=== PATIENT | male | born 1960 | race Caucasian/White ===

== ENCOUNTER 2023-12-11 13:06 | Inpatient (IN) | payer OTHER ==
[~2023-12-11] VITALS: Ht 170.2 cm; Wt 74.8 kg
[2023-12-11] MEDS ORDERED: BACI/NEOM/POLY B OINT PKT 1 UDPKT PACKET TP ONE (13:30)
[2023-12-11] MEDS ORDERED: LIDOCAINE 1% INJ 50 ML MDV IJ ONE (13:30)
[2023-12-11] MEDS ORDERED: TDAP [DIPH/PERTUSSIS/TET] 0.5 ML VIAL IM ONE ×2 (13:30→13:32)
[2023-12-11] MEDS ORDERED: IV NS 0.9% 1,000 ML BAG IV ONE (13:30)
[2023-12-11] MEDS ORDERED: LIDOCAINE HCL/PF 1% 30 ML SDV ONE (13:31)
[2023-12-11 13:36] LABS: BASOPHILS # (AUTO) 0.1 K/uL (0.0-0.2); BASOPHILS % (AUTO) 0.7 % (0.0-2.0); EOSINOPHILS # (AUTO) 0.4 K/uL (0.0-0.7); EOSINOPHILS % (AUTO) 3.6 % (0.0-6.0); HEMATOCRIT 38 % (39-51); HEMOGLOBIN 12.6 g/dL (13.5-17.5); LYMPHOCYTES # (AUTO) 5.1 K/uL (0.8-4.8); LYMPHOCYTES % (AUTO) 46.1 % (20.0-44.0); MEAN CORPUSCULAR HEMOGLOBIN 24 PG (26.0-33.0); MEAN CORPUSCULAR HGB CONC 33 g/dl (31.0-36.0); MEAN CORPUSCULAR VOLUME 72 fL (80-96); MONOCYTES # (AUTO) 1.3 K/uL (0.1-1.30); MONOCYTES % (AUTO) 11.4 % (2.0-12.0); NEUTROPHILS # (AUTO) 4.2 K/uL (1.8-8.9); NEUTROPHILS % (AUTO) 38.2 % (43.0-81.0); PLATELET COUNT (AUTO) 378 K/uL (150-450); RED BLOOD CELL COUNT(AUTO) 5.31 MIL/uL (4.5-6.0); RED CELL DISTRIBUTION WIDTH 15.4 % (11.5-15.0)
[2023-12-11] MEDS ORDERED: HYDR-3895 PO (13:44)
[2023-12-11] MEDS ORDERED: METO-295 PO (13:44)
[2023-12-11] MEDS ORDERED: OMEP20CA15 PO (13:44)
[2023-12-11] MEDS ORDERED: PERP4TAB11 PO (13:44)
[2023-12-11] MEDS ORDERED: ALBU8.5H8 IH (13:45)
[2023-12-11] MEDS ORDERED: GABA-532 PO (13:45)
[2023-12-11] MEDS ORDERED: DOCU-141 PO (13:45)
[2023-12-11] MEDS ORDERED: PERP8TAB6 PO (13:45)
[2023-12-11] MEDS ORDERED: BENZ1TAB7 PO (13:45)
[2023-12-11] MEDS ORDERED: DICL100G34 TP (13:45)
[2023-12-11] MEDS ORDERED: BUSP15TA3 PO (13:45)
[2023-12-11] MEDS ORDERED: AMLO-213 PO (13:45)
[2023-12-11] MEDS ORDERED: IPRA4AER IH (13:45)
[2023-12-11] MEDS ORDERED: CHOL100043 PO (13:45)
[2023-12-11] MEDS ORDERED: ATOR10TA PO (13:45)
[2023-12-11 13:48] LABS: INR 1.03 (0.91-1.10); PARTIAL THROMBOPLASTIN TIME 29.1 SEC (24.3-34.3); PROTHROMBIN TIME 10.9 SECS (9.2-11.1)
[2023-12-11 15:02] LABS: ALANINE AMINOTRANSFERASE 24 U/L (12-78); ALKALINE PHOSPHATASE 114 U/L (46-116); ASPARTATE AMINOTRANSFERASE 17 U/L (15-37); BILIRUBIN,DIRECT 0.1 mg/dL (0.0-0.2); BILIRUBIN,TOTAL 0.3 mg/dL (0.2-1.0); CALCIUM, SERUM 9.7 mg/dL (8.5-10.1); CARBON DIOXIDE 29 mmol/L (21-32); CHLORIDE 97 mmol/L (98-107); GLUCOSE 95 mg/dL (74-106); SODIUM SERUM 137 mmol/L (136-145); TOTAL PROTEIN, SERUM 8.2 g/dL (6.4-8.2); UREA NITROGEN, BLOOD 15 mg/dL (7-18)
[2023-12-11 15:07] LABS: THYROID STIMULATING HORMONE 1.233 uIU/mL (0.358-3.74)
[2023-12-11 15:10] LABS: POTASSIUM 2.6 mmol/L (3.5-5.1)
[2023-12-11] MEDS ORDERED: POTASSIUM CL. PREMIX PERIPHER. 200 ML ONE (15:21)
[2023-12-11] MEDS ORDERED: POTASSIUM CHLORIDE 20 MEQ TAB.PRT.SR PO ONE ×2 (15:21→15:30)
[2023-12-11] MEDS ORDERED: hydrOXYzine PAMOATE 25 MG CAPSULE PO SCH (15:30)
[2023-12-11] MEDS ORDERED: Z GUARD REMEDY 4 OZ OINT TP PRN (15:30)
[2023-12-11] MEDS ORDERED: MAGNESIUM HYDROXIDE 30 ML UDC PO PRN (15:30)
[2023-12-11] MEDS: POTASSIUM CL. PREMIX PERIPHER. 50 ML IV SCH ×4 (15:30→19:51)
[2023-12-11] MEDS ORDERED: ACETAMINOPHEN 325 MG TABLET PO PRN (15:30)
[2023-12-11] MEDS ORDERED: MAG HYDROX/AL HYDROX/SIMETH 30 ML UDC PO PRN (15:30)
[2023-12-11] MEDS ORDERED: ZOLPIDEM TARTRATE 5 MG TABLET PO PRN (15:30)
[2023-12-11] MEDS ORDERED: ONDANSETRON HCL/PF 4 MG/2 ML VIAL IVP PRN (15:30)
[2023-12-11] MEDS ORDERED: ALBUTEROL FS 2.5 MG/0.5 ML VIAL.NEB NEB PRN (16:30)
[2023-12-11] MEDS ORDERED: DICLOFENAC TOPICAL 100 GM TUBE TP SCH (17:00)
[2023-12-11] MEDS: GABAPENTIN 100 MG CAPSULE PO SCH (19:59)
[2023-12-11] MEDS: BENZTROPINE MESYLATE (1 MG) 1 MG TABLET PO SCH (19:59)
[2023-12-11] MEDS: ATORVASTATIN 10 MG TABLET PO SCH (19:59)
[2023-12-11 20:00] VITALS: BP_SYST 152; BP_SYST 160; BP_DIAS 81; BP_DIAS 85; TEMP 98.8; O2SAT 98
[2023-12-11] MEDS: IV NS 0.9% 1,000 ML IV PRN (20:02)
[2023-12-11 21:52] LABS: HIV-1 p24 ANTIGEN NON REACTIVE (NONREACTIVE); HIV-1/2 ANTIBODY NON REACTIVE (NONREACTIVE)
[2023-12-11] MEDS: DOCUSATE SODIUM 100 MG CAPSULE PO SCH (22:08)
[2023-12-11 22:22] VITALS: O2SAT 93
[2023-12-11] MEDS: IPRATROPIUM NEB FS 0.5 MG/2.5 ML AMPUL.NEB NEB SCH (22:22)
[2023-12-11] MEDS: ALBUTEROL FS 2.5 MG/0.5 ML VIAL.NEB NEB SCH (22:22)
[2023-12-11 22:38] VITALS: O2SAT 98
[2023-12-12] VITALS (16 sets, daily range): BP systolic 127–179; BP diastolic 73–93; TEMP 97.7–99.2; O2SAT 92–100
[2023-12-12] MEDS: IPRATROPIUM NEB FS 0.5 MG/2.5 ML AMPUL.NEB NEB SCH ×4 (01:30→19:49)
[2023-12-12] MEDS: ALBUTEROL FS 2.5 MG/0.5 ML VIAL.NEB NEB SCH ×4 (01:30→19:48)
[2023-12-12] MEDS: BENZTROPINE MESYLATE (1 MG) 1 MG TABLET PO SCH ×2 (08:11→16:25)
[2023-12-12] MEDS: GABAPENTIN 100 MG CAPSULE PO SCH ×3 (08:11→16:25)
[2023-12-12] MEDS: CHOLECALCIFEROL 1,000 UNIT TABLET (VIT D3) PO SCH (08:11)
[2023-12-12] MEDS: AMLODIPINE BESYLATE 10 MG TABLET PO SCH (08:14)
[2023-12-12] MEDS: PANTOPRAZOLE 40 MG TABLET.DR PO SCH (08:20)
[2023-12-12 08:24] LABS: BASOPHILS # (AUTO) 0.1 K/uL (0.0-0.2); BASOPHILS % (AUTO) 0.6 % (0.0-2.0); EOSINOPHILS # (AUTO) 0.4 K/uL (0.0-0.7); EOSINOPHILS % (AUTO) 3.3 % (0.0-6.0); HEMATOCRIT 36 % (39-51); HEMOGLOBIN 11.7 g/dL (13.5-17.5); LYMPHOCYTES # (AUTO) 3.6 K/uL (0.8-4.8); LYMPHOCYTES % (AUTO) 30.3 % (20.0-44.0); MEAN CORPUSCULAR HEMOGLOBIN 23 PG (26.0-33.0); MEAN CORPUSCULAR HGB CONC 32 g/dl (31.0-36.0); MEAN CORPUSCULAR VOLUME 73 fL (80-96); MONOCYTES % (AUTO) 8.8 % (2.0-12.0); NEUTROPHILS # (AUTO) 6.7 K/uL (1.8-8.9); PLATELET COUNT (AUTO) 374 K/uL (150-450); RED CELL DISTRIBUTION WIDTH 15.3 % (11.5-15.0); WHITE BLOOD COUNT (AUTO) 11.8 K/uL (4.3-11.0)
[2023-12-12 08:37] LABS: CALCIUM, SERUM 8.6 mg/dL (8.5-10.1); MAGNESIUM 1.5 mg/dL (1.8-2.4); PHOSPHORUS 2.8 mg/dL (2.5-4.9)
[2023-12-12 08:38] LABS: POTASSIUM 2.8 mmol/L (3.5-5.1)
[2023-12-12] MEDS: IV NS 0.9% 1,000 ML IV PRN ×2 (09:10→23:33)
[2023-12-12 09:11] LABS: THYROID STIMULATING HORMONE 0.985 uIU/mL (0.358-3.74)
[2023-12-12] MEDS ORDERED: MAGNESIUM OXIDE 400 MG TABLET PO ONE (11:00)
[2023-12-12] MEDS ORDERED: POTASSIUM CHLORIDE 20 MEQ TAB.PRT.SR PO ONE (11:00)
[2023-12-12 12:44] LABS: HEPATITIS B SURFACE AB Reactive (.)
[2023-12-12] MEDS ORDERED: LACTULOSE 10 G/15 ML UDC (PYXIS) PO ONE (16:00)
[2023-12-12] MEDS: ATORVASTATIN 10 MG TABLET PO SCH (18:16)
[2023-12-12] MEDS: DOCUSATE SODIUM 100 MG CAPSULE PO SCH (21:12)
[2023-12-13] VITALS (14 sets, daily range): BP systolic 138–160; BP diastolic 78–95; TEMP 97.6–98.7; O2SAT 94–100
[2023-12-13] MEDS: IPRATROPIUM NEB FS 0.5 MG/2.5 ML AMPUL.NEB NEB SCH ×4 (01:33→19:58)
[2023-12-13] MEDS: ALBUTEROL FS 2.5 MG/0.5 ML VIAL.NEB NEB SCH ×4 (01:33→19:58)
[2023-12-13 07:34] LABS: BASOPHILS # (AUTO) 0.1 K/uL (0.0-0.2); BASOPHILS % (AUTO) 0.6 % (0.0-2.0); EOSINOPHILS # (AUTO) 0.4 K/uL (0.0-0.7); EOSINOPHILS % (AUTO) 3.6 % (0.0-6.0); HEMATOCRIT 34 % (39-51); HEMOGLOBIN 11.2 g/dL (13.5-17.5); LYMPHOCYTES # (AUTO) 2.3 K/uL (0.8-4.8); LYMPHOCYTES % (AUTO) 22.6 % (20.0-44.0); MEAN CORPUSCULAR HEMOGLOBIN 24 PG (26.0-33.0); MEAN CORPUSCULAR HGB CONC 33 g/dl (31.0-36.0); MEAN CORPUSCULAR VOLUME 73 fL (80-96); MONOCYTES % (AUTO) 9.7 % (2.0-12.0); NEUTROPHILS # (AUTO) 6.4 K/uL (1.8-8.9); NEUTROPHILS % (AUTO) 63.5 % (43.0-81.0); PLATELET COUNT (AUTO) 339 K/uL (150-450); RED CELL DISTRIBUTION WIDTH 15.3 % (11.5-15.0); WHITE BLOOD COUNT (AUTO) 10.1 K/uL (4.3-11.0)
[2023-12-13 08:07] LABS: CALCIUM, SERUM 8.9 mg/dL (8.5-10.1); CREATININE 0.8 mg/dL (0.6-1.3); MAGNESIUM 1.6 mg/dL (1.8-2.4)
[2023-12-13 08:59] LABS: POTASSIUM 2.8 mmol/L (3.5-5.1)
[2023-12-13] MEDS: BENZTROPINE MESYLATE (1 MG) 1 MG TABLET PO SCH ×2 (09:15→17:43)
[2023-12-13] MEDS: AMLODIPINE BESYLATE 10 MG TABLET PO SCH (09:15)
[2023-12-13] MEDS: PANTOPRAZOLE 40 MG TABLET.DR PO SCH (09:15)
[2023-12-13] MEDS: GABAPENTIN 100 MG CAPSULE PO SCH ×3 (09:15→17:43)
[2023-12-13] MEDS ORDERED: MAGNESIUM OXIDE 400 MG TABLET PO ONE (10:00)
[2023-12-13] MEDS: CHOLECALCIFEROL 1,000 UNIT TABLET (VIT D3) PO SCH (10:42)
[2023-12-13] MEDS: POTASSIUM CHLORIDE 20 MEQ TAB.PRT.SR PO SCH ×3 (10:42→12:36)
[2023-12-13 10:43] LABS: ANISOCYTOSIS 1+; EOSINOPHILS % (MANUAL) 2 % (0-4); LYMPHOCYTES % (MANUAL) 27 % (16-48); MONOCYTES % (MANUAL) 8 % (0-11.0); NEUTROPHILS % (MANUAL) 63 (42-76); PLATELET ESTIMATE ADEQUATE
[2023-12-13] MEDS: IV NS 0.9% 1,000 ML IV PRN (14:05)
[2023-12-13] MEDS: GUAIFENESIN/CODEINE 10 ML UDC PO PRN (17:43)
[2023-12-13] MEDS: ATORVASTATIN 10 MG TABLET PO SCH (17:43)
[2023-12-13] MEDS: DOCUSATE SODIUM 100 MG CAPSULE PO SCH (21:17)
[2023-12-14] VITALS (9 sets, daily range): BP systolic 131–157; BP diastolic 81–92; TEMP 98–98.9; O2SAT 93–99
[2023-12-14] MEDS: GUAIFENESIN/CODEINE 10 ML UDC PO PRN ×2 (01:21→11:06)
[2023-12-14] MEDS: ALBUTEROL FS 2.5 MG/0.5 ML VIAL.NEB NEB SCH ×3 (02:18→13:20)
[2023-12-14] MEDS: IPRATROPIUM NEB FS 0.5 MG/2.5 ML AMPUL.NEB NEB SCH ×3 (02:18→13:20)
[2023-12-14] MEDS: IV NS 0.9% 1,000 ML IV PRN (04:55)
[2023-12-14 07:33] LABS: CALCIUM, SERUM 8.8 mg/dL (8.5-10.1); CREATININE 0.9 mg/dL (0.6-1.3); MAGNESIUM 1.7 mg/dL (1.8-2.4)
[2023-12-14] MEDS: AMLODIPINE BESYLATE 10 MG TABLET PO SCH (08:22)
[2023-12-14] MEDS: PANTOPRAZOLE 40 MG TABLET.DR PO SCH (08:22)
[2023-12-14] MEDS: CHOLECALCIFEROL 1,000 UNIT TABLET (VIT D3) PO SCH (08:22)
[2023-12-14] MEDS: GABAPENTIN 100 MG CAPSULE PO SCH ×2 (08:22→12:12)
[2023-12-14] MEDS: BENZTROPINE MESYLATE (1 MG) 1 MG TABLET PO SCH (08:22)
[2023-12-14] MEDS: Magnesium 1GM/D5W 100ML PREMIX 100 ML IV SCH ×2 (09:17→10:17)
[2023-12-14] MEDS: POTASSIUM CHLORIDE 20 MEQ TAB.PRT.SR PO SCH ×5 (09:17→13:58)
[2023-12-14] MEDS ORDERED: MAGN400T26 PO (10:35)
[2023-12-14] MEDS ORDERED: POTA10CA43 PO (10:35)
== END 2023-12-14 14:38 | DRG 48 ==
LOC: ER 13:06 → TELE1 18:23
PROVIDERS: ADMIT Nurse Practitioner Acute Care; ATTEND Nurse Practitioner Acute Care
PROC: 0HQ1XZZ Repair Face Skin, External Approach (ICD-10-PCS; principal; 2023-12-11)
DX: G90.8 Other disorders of autonomic nervous system (principal); D63.8 Anemia in other chronic diseases classified elsewhere; J44.89 Other specified chronic obstructive pulmonary disease; F29 Unspecified psychosis not due to a substance or known physiological condition; J45.909 Unspecified asthma, uncomplicated; E78.5 Hyperlipidemia, unspecified; S01.81XA Laceration without foreign body of other part of head, initial encounter; E83.42 Hypomagnesemia; E87.6 Hypokalemia; Z20.822 Contact with and (suspected) exposure to COVID-19; I10 Essential (primary) hypertension; K21.9 Gastro-esophageal reflux disease without esophagitis; Z79.899 Other long term (current) drug therapy; W07.XXXA Fall from chair, initial encounter; Y92.099 Unspecified place in other non-institutional residence as the place of occurrence of the external cause; F20.9 Schizophrenia, unspecified; F17.210 Nicotine dependence, cigarettes, uncomplicated; K76.9 Liver disease, unspecified; M19.90 Unspecified osteoarthritis, unspecified site; Z79.51 Long term (current) use of inhaled steroids; F10.11 Alcohol abuse, in remission; Y90.9 Presence of alcohol in blood, level not specified
CPT/HCPCS: 36415; 70450-TC; 71045-TC; 80048-TC; 80061-TC; 80076-TC; 82728-TC; 82962-TC; 83540-TC; 83735-TC; 83880; 84100-TC; 84439-TC; 84443-TC; 84484-TC; 85025-TC; 85730-TC; 86706; 86803; 86850-TC; 87081-TC; 87340; 87806; 90715; 93307-TC; 94799-TC; 97112-TC; 97116-TC; 97530-TC; A4223; A6403; G0378; J3475; J3480; J3490; J7030